=== PATIENT | female | born 1975 | race Two or more races ===

== ENCOUNTER → 2017-06-29 | Outpatient (CLI) | payer OTHER ==
[~2017-06-29] MED LIST: IMITREX100 MG PO; TRI-SPRINTEC T1 EACH PO; TUSSI PRES-B L120 M1 PO
== END | disposition home or self-care (01) ==
LOC: RAD 501 09:27
DX: M25.529 Pain in unspecified elbow (principal); M25.512 Pain in left shoulder

== ENCOUNTER 2020-12-30 22:30 | Emergency (ER) | payer OTHER ==
[~2020-12-30] VITALS: Ht 154.9 cm; Wt 48.5 kg
[2020-12-31] MEDS ORDERED: KETO10TA2 PO ×2 (00:51→00:57)
[2020-12-31] MEDS ORDERED: CEFADROXIL500 MG PO ×2 (00:51→00:57)
== END 2020-12-31 01:36 ==
LOC: ER 22:30
DX: S67.190A Crushing injury of right index finger, initial encounter (principal); S61.220A Laceration with foreign body of right index finger without damage to nail, initial encounter; X58.XXXA Exposure to other specified factors, initial encounter; Y93.89 Activity, other specified; Y92.89 Other specified places as the place of occurrence of the external cause; Y99.8 Other external cause status

== ENCOUNTER 2023-02-02 14:47 | Emergency (ER) | payer OTHER ==
[~2023-02-02] VITALS: Ht 154.9 cm; Wt 49.4 kg
[~2023-02-02 14:47] MED LIST changes: +CEFADROXIL500 MG PO; +KETO10TA2 PO
[2023-02-02] MEDS ORDERED: INDERAL LA80 MG (15:44)
[2023-02-02] MEDS ORDERED: TRI-SPRINTEC T1 EACH PO (15:45)
== END 2023-02-02 19:17 | disposition home or self-care (01) ==
LOC: ER 14:48
DX: M79.642 Pain in left hand (principal)

== ENCOUNTER 2023-05-12 09:55 | Outpatient (CLI) | payer OTHER ==
[~2023-05-12 09:55] MED LIST changes: +INDERAL LA80 MG
== END 2023-05-12 10:04 | disposition home or self-care (01) ==
LOC: MAMO-SONO 09:55
PROVIDERS: ATTEND Urology
DX: N60.21 Fibroadenosis of right breast (principal); N60.22 Fibroadenosis of left breast; Z12.31 Encounter for screening mammogram for malignant neoplasm of breast

== ENCOUNTER 2024-05-19 09:13 | Outpatient (CLI) | payer OTHER | END 2024-05-19 09:18 | disposition home or self-care (01) | LOC: MAMO-SONO 09:13 | PROVIDERS: ATTEND Urology | DX: Z12.31 Encounter for screening mammogram for malignant neoplasm of breast (principal) ==